=== PATIENT | female | born 1975 | race American Indian/Alaskan Native ===

== ENCOUNTER 2017-03-05 15:34 | Observation (INO) | payer SELFPAY ==
--- NOTE | 2017-03-05 14:21 | History and Physical Report ---
History of Present Illness Date of examination: 03/05/17 Chief complaint: Elevated BP and proteinuria History of present illness: 41-year-old at 25+ weeks presents with above issues and complaints, she is a [facility] patient. Essential history this patient with history of hypertensive disorder of being followed by a [facility]. She was seen in clinic today with blood pressure in the 140 over 90s with 4+ protein on a urinalysis. She is sent over for further care. There is an oral history of 24-hour urine protein collection, no results yet. A history of negative HELLP labs. Last scan from [facility] was on 01/29/2017 and was unremarkable Currently denies headache, scotomata or epigastric pain. No contractions, loss of fluid or vaginal bleeding plus movement Past History Past Medical History: no pertinent history Past Surgical History: section (# 2, last in 02/2015), other (inguinal hernia repair) PERSONNEL TRAINING OFFICER History: denies: chlamydia, fibroids, gonorrhea, hepatitis B, hepatitis C, herpes, HIV, syphilis, trichomonas Social history: , full code. denies: smoking, alcohol abuse, prescription drug abuse, IV drug use - Obstetrical History Expected Date of Delivery: 06/14/17 Actual Gestation: 25 Week(s) 4 Day(s) : 4 Para: 3 Hx # Term Pregnancies: 3 Number of Pregnancies: 0 Review of Systems Constitutional: no fever, no chills, no sweats, no weakness Cardiovascular: no chest pain, no orthopnea, no palpitations, no syncope, no lightheadedness, no shortness of breath, no dyspnea on exertion, no paroxysmal nocturnal dyspnea, no high blood pressure Respiratory: no cough with sputum, no hemoptysis, no shortness of breath, no dyspnea on exertion Gastrointestinal: no abdominal pain, no nausea, no vomiting, no coffee ground emesis, no heartburn Genitourinary: no vaginal bleeding, no vaginal discharge, no leakage of fluid, no genital sores, no contractions - Physical Exam Cardiovascular: Regular rate, Normal S1, Normal S2 Lungs: Positive: Clear to auscultation, Normal air movement Abdomen: Positive: normal appearance, soft. Negative: distention, tenderness, guarding, rigidity Uterus: Positive: enlarged. Negative: tender Extremities: Positive: normal Results All other labs normal. Assessment and Plan A: 41 y/o at 25+4 weeks presents for observation Issues -Elevated BP w/ range ~ 140/90's -AMA -Hx of Pre-Eclampsia with prior pregnancies -Prior C/S # 2 -Desires permanent sterilization P: -Admit -Obtain 24-hour urine protein collection and HELLP labs -BPP and Growth scan -Start celestone course, antihypertensives and Magnesium for severe range blood pressures -consented for tubal ligation -Final disposition after results available - Patient Problems (1) 25 to 26 weeks gestation of Current Visit: Yes Status: Acute (2) Hypertension affecting in third trimester Current Visit: Yes Status: Acute (3) AMA (advanced maternal age) multigravida 35+ Current Visit: Yes Status: Acute Qualifiers: Trimester: T (4) Request for sterilization Current Visit: Yes Status: Acute
[~2017-03-05 15:34] MED LIST: APRESOLINE IV PRN; COLACE PO PRN; ZOFRAN IV PRN
[2017-03-05 18:39] LABS: Hematocrit 37.7 % (30.3-42.9); Hemoglobin 11.9 gm/dl (10.1-14.3); Mean Corpuscular HGB Conc 32 % (30-34); Mean Corpuscular Volume 80 fl (79-97); Platelet Count 223 K/mm3 (140-440); Red Blood Count 4.71 M/mm3 (3.65-5.03); White Blood Count 7.9 K/mm3 (4.5-11.0)
[2017-03-05 18:48] LABS: Alanine Aminotransferase 19 units/L (7-56); Albumin 3.3 g/dL (3.9-5); Albumin/Globulin Ratio 1.1 %; Alkaline Phosphatase 139 units/L (35-129); Anion Gap 17 mmol/L; Bilirubin,Total < 0.20 mg/dL (0.1-1.2); Blood Urea Nitrogen 8 mg/dL (7-17); Calcium 8.9 mg/dL (8.4-10.2); Carbon Dioxide 20 mmol/L (22-30); Chloride 101.6 mmol/L (98-107); Glucose 77 mg/dL (65-100); Potassium 3.9 mmol/L (3.6-5.0); Sodium 135 mmol/L (137-145); Total Protein 6.3 g/dL (6.3-8.2)
[2017-03-05 18:50] LABS: Bilirubin,Direct < 0.2 mg/dL (0-0.2)
[2017-03-05 19:01] LABS: Mean Corpuscular Hemoglobin 25 pg (28-32)
[2017-03-05] MEDS: TYLENOL PO PRN (19:45)
[2017-03-06] MEDS: LACTATED RINGERS 1,000 ML IV SCH ×3 (01:10→16:35)
--- NOTE | 2017-03-06 07:27 | Ultrasound Report ---
ULTRASOUND BIOPHYSICAL PROFILE: History: Hypertension during Technique: Transabdominal ultrasound with Doppler interrogation. 2 - breathing movements 2 - movements 2 - posture and tone 2 - Qualitative amniotic fluid volume 8 - TOTAL SCORE OF POSSIBLE 8 Heart Rate (bpm) 150
--- NOTE | 2017-03-06 07:33 | Ultrasound Report ---
OB ULTRASOUND HISTORY: Hypertension during , well being TECHNIQUE: Transabdominal ultrasound with Doppler interrogation. FINDINGS: Gestation: Single Position: Breech Amniotic Fluid: Normal KITA = 19.9 cm Placenta: Fundal Placental Grade: 1 Heart Rate: 150 BPM Cervical length: Not seen cm (Normal > 3 cm) BPD: 6.2 cm = 25 w 1 d HC: 23.9 cm = 26 w 0 d AC: 19.9 cm = 24 w 4 d FL: 4.7 cm = 25 w 4 d HC/AC Ratio: 1.2 Cephalic Index: 74.3 Estimated Weight: 770 grams Clinical age = 25 w 4 d EDC: 06/14/17 US Gest. Age = 25 w 2 d EDC: 06/16/17
--- NOTE | 2017-03-06 08:00 | Progress Note ---
Assessment and Plan A: 41 y/o at 25+5 weeks presents for observation -Blood pressure and HELLP labs within normal Issues -Hx of Elevated BP w/ range ~ 140/90's on admission -AMA -Hx of Pre-Eclampsia with prior pregnancies -Prior C/S # 2 -Desires permanent sterilization P: -Complete 24 hour urine protein -Discharged home after completion of above -Follow-up with clinic and [facility] as recommended - Patient Problems (1) 25 to 26 weeks gestation of Current Visit: Yes Status: Acute (2) Hypertension affecting in third trimester Current Visit: Yes Status: Acute (3) AMA (advanced maternal age) multigravida 35+ Current Visit: Yes Status: Acute Qualifiers: Trimester: T (4) Request for sterilization Current Visit: Yes Status: Acute Subjective - Subjective Date of service: 03/06/17 Principal diagnosis: IUP @ 25+5 wks, HTN d/o Preg r/o Pre-E Interval history: Patient seen and examined, and well no issues. He has no symptoms of preeclampsia. HELLP labs obtained yesterday within normal Blood pressure reviewed. She was admitted at about ~ 16:20 yesterday afternoon. Blood pressure readings from admission shows 3 recordings with elevated BP's. One reading was 169/74 then two other readings in the 140/90's. All other readings since then have been in the range between 100-130/50-70. Scan 03/05/2017 shows EFW 770 g. Cervical length is 3 cm, placenta is fundal, KITA is ~ 20; fetus in breech. Ultrasound Age is 25+2 weeks with EDC 06/16/2017 this is consistent with clinical age of 25+4 days with EDC 06/14/2017. BPP is 8 out of 8 Patient reports: new complaints, movement normal, no loss of fluid, no vaginal bleeding, no contractions Objective - Vital Signs Vital Signs: Vital Signs - 12hr 03/05/17 03/05/17 03/05/17 20:29 20:43 20:59 Temperature Pulse Rate 110 H 97 H 105 H Respiratory Rate Blood Pressure 113/55 106/51 123/68 03/05/17 03/05/17 03/05/17 21:13 21:29 21:44 Temperature Pulse Rate 85 86 86 Respiratory Rate Blood Pressure 104/58 108/57 117/59 03/05/17 03/05/17 03/05/17 22:02 22:13 22:28 Temperature Pulse Rate 87 85 81 Respiratory Rate Blood Pressure 131/68 128/72 125/68 03/05/17 03/05/17 03/05/17 22:44 22:58 23:13 Temperature Pulse Rate 90 93 H 83 Respiratory Rate Blood Pressure 126/70 119/66 124/70 03/05/17 03/05/17 03/06/17 23:29 23:43 00:15 Temperature 98.3 F Pulse Rate 76 78 Respiratory 18 Rate Blood Pressure 111/59 113/57 03/06/17 03/06/17 03/06/17 00:44 00:58 01:13 Temperature Pulse Rate 84 90 78 Respiratory Rate Blood Pressure 106/55 113/58 126/62 03/06/17 03/06/17 03/06/17 01:28 01:43 01:58 Temperature Pulse Rate 87 88 86 Respiratory Rate Blood Pressure 124/68 123/68 124/67 03/06/17 03/06/17 03/06/17 02:37 02:43 02:59 Temperature Pulse Rate 83 83 83 Respiratory Rate Blood Pressure 128/78 126/78 104/56 03/06/17 03/06/17 03/06/17 03:14 03:44 03:45 Temperature 98.5 F Pulse Rate 81 76 Respiratory 18 Rate Blood Pressure 123/70 100/59 03/06/17 03/06/17 03/06/17 03:59 04:44 04:58 Temperature Pulse Rate 80 102 H 93 H Respiratory Rate Blood Pressure 123/68 111/61 113/59 03/06/17 03/06/17 03/06/17 05:14 05:29 05:43 Temperature Pulse Rate 102 H 96 H 93 H Respiratory Rate Blood Pressure 114/74 106/62 105/57 03/06/17 03/06/17 03/06/17 05:58 06:14 06:28 Temperature Pulse Rate 93 H 121 H 100 H Respiratory Rate Blood Pressure 112/58 109/60 115/62 - Labs Labs: Abnormal Labs 03/05/17 03/05/17 17:57 17:57 MCH 25 L RDW 21.0 H Sodium 135 L Carbon Dioxide 20 L Creatinine 0.4 L Alkaline Phosphatase 139 H Albumin 3.3 L Laboratory Results - last 24 hr 03/05/17 03/05/17 03/05/17 17:57 17:57 17:57 WBC 7.9 RBC 4.71 Hgb 11.9 Hct 37.7 MCV 80 MCH 25 L MCHC 32 RDW 21.0 H Plt Count 223 Sodium 135 L Potassium 3.9 Chloride 101.6 Carbon Dioxide 20 L Anion Gap 17 BUN 8 Creatinine 0.4 L Estimated GFR > 60 BUN/Creatinine Ratio 20.00 Glucose 77 Calcium 8.9 Total Bilirubin < 0.20 Direct Bilirubin < 0.2 Indirect Bilirubin 0.0 AST 29 ALT 19 Alkaline Phosphatase 139 H Total Protein 6.3 Albumin 3.3 L Albumin/Globulin Ratio 1.1 Blood Type AB POSITIVE Antibody Screen TNR ASHLEE Antibody Screen Negative
--- NOTE | 2017-03-06 08:05 | Discharge Summary ---
Providers - Providers Date of Admission: 03/05/17 15:35 Date of discharge: 03/06/17 Attending physician: AGUSTINA VACA Primary care physician: AGUSTINA VACA Hospitalization Reason for admission: observation (IUP at 25+4 weeks to rule out preeclampsia) Discharge diagnosis: other (IUP at 25+5 weeks with hypertensive disorder of ) Pertinent studies: -Growth Scan 03/05/2017 shows EFW 770 g. Cervical length is 3 cm, placenta is fundal, KITA is ~ 20; fetus in breech. Ultrasound Age is 25+2 weeks with EDC this is consistent with clinical age of 25+4 days with EDC 06/14/2017. -BPP is 8 out of 8 Hospital course: 41-year-old at 25+4 weeks presents for observation, she is a [facility] patient. Essential history this patient with history of hypertensive disorder of being followed by a [facility]. She was seen in clinic today with blood pressure in the 140 over 90s with 4+ protein on a urinalysis. She is sent over for further care. There is an oral history of 24- hour urine protein collection, no results yet. A history of negative HELLP labs. Last scan from [facility] was on 01/29/2017 and was unremarkable Currently denies headache, scotomata or epigastric pain. No contractions, loss of fluid or vaginal bleeding plus movement Patient seen and examined, and well no issues on HD# 2. She still has no symptoms of preeclampsia. HELLP labs obtained yesterday (03/05/17) within normal Blood pressure reviewed. She was admitted at about ~ 16:20 yesterday afternoon (03/05/17). Blood pressure readings from admission shows 3 recordings with elevated BP's. One reading was 169/74 then two other readings in the 140/90's. All other readings since then have been in the range between 100-130/50-70. Note that she's currently on no antihypertensive medication. Scan 03/05/2017 shows EFW 770 g. Cervical length is 3 cm, placenta is fundal, KITA is ~ 20; fetus in breech. Ultrasound Age is 25+2 weeks with EDC 06/16/2017 this is consistent with clinical age of 25+4 days with EDC 06/14/2017. BPP is 8 out of 8 She will complete her 24-hour urine protein at ~ 18:00. She will be discharged home to follow up with maternal- medicine and clinic on outpatient basis. Please note patient is status post 2 prior C-sections. She desires to have tubal ligation during her repeat and has signed consent. Condition at discharge: Good Disposition: DC-01 TO HOME OR SELFCARE - Discharge Diagnoses (1) 25 to 26 weeks gestation of Status: Acute (2) Hypertension affecting in third trimester Status: Acute (3) AMA (advanced maternal age) multigravida 35+ Status: Acute Qualifiers: Trimester: T (4) Request for sterilization Status: Acute Plan - Provider Discharge Summary Activity: routine, no heavy lifting 4 weeks, no strenuous exercise Diet: routine Additional instructions: [] Smoking cessation referral if applicable(refer to patient education folder for contact #) [] Refer to [facility] Booklet Call your doctor immediately for: * Fever > 100.5 * Heavy vaginal bleeding ( >1 pad per hour) * Severe persistent headache * Shortness of breath * Reddened, hot, painful area to leg or breast * Drainage or odor from incision. * Keep incision clean and dry at all times and follow doctor's instructions regarding bathing/showering - Follow up plan Follow up: AGUSTINA VACA MD [Primary Care Provider] - 3 Days (In clinic for BP check) ENA THORNTON MD [Staff Physician] - 3 Days
--- NOTE | 2017-03-06 08:14 | Admit Criteria Form ---
Admission Criteria Documentation: OBSTETRIC AND GYNECOLOGIC DISEASE GRG Clinical Indications for Admission to Inpatient Care (Place 'X' for any and all applicable criteria): Hospital admission is needed for appropriate care of the patient because of 1 or more of the following (1)(2)(3): [ ]I. Hemodynamic instability, as indicated by 1 or more of the following (1)( 2)(3)(4)(5): [ ]a) Vital signs or other findings not as expected for chronic patient condition or baseline [ ]b) Instability indicated by 1 or more of the following: [ ]i) Hypotension [ ]ii) Symptomatic tachycardia unresponsive to treatment (eg, analgesia, fluids, sedation as indicated) [ ]iii) Inadequate perfusion indicated by 1 or more of the following: [ ]A. Lactic acidosis (greater than 2 mmol/ L) [ ]B. New abnormal capillary refill ( greater than 3 seconds) [ ]C. Reduced urine output [ ]D. New altered mental status [ ]iv) Orthostatic vital sign changes unresponsive to treatment (eg, fluids) [ ]v) Multiple IV fluid boluses required to maintain adequate blood pressure or perfusion [ ]vi) IV inotropic or vasopressor medication required to maintain adequate blood pressure or perfusion [ ]II. Obstetric infection requiring hospitalization indicated by 1 or more of the following(13)(14): [ ]a) Chorioamnionitis [ ]b) Endometritis (except mild endometritis) [ ]c) Pelvic abscess [ ]d) Peritonitis [ ]e) Septic pelvic thrombophlebitis [ ]III. Amniotic fluid or pulmonary embolism(4)(5)(6) [ ]IV. Suspected peritonitis or ectopic requiring monitoring beyond scope of 24 hours or observation care(7)(8) [ ]V. compromise requiring hospitalization indicated by ALL of the following(9)(10): [ ]a) compromise indicated by 1 or more of the following(11): [ ]i) Abnormal heart rate monitoring [ ]ii) Abnormal contraction stress test [ ]iii) Abnormal biophysical profile [ ]iv) Abnormal Doppler flow in vessels (ie, Doppler velocimetry) (12) [ ]b) Persistence of compromise indicators during evaluation and observation monitoring [ ]. Ovarian hyperstimulation syndrome requiring hospitalization[A] indicated by ALL of the following(15): [ ]a) Recent ovarian stimulation with gonadotropins, or evidence on ultrasound of spontaneous emergence of large number of ovarian follicles [ ]b) Evidence of severe ovarian hyperstimulation syndrome indicated by 1 or more of the following: [ ]i) Abdominal pain unresponsive to oral therapy [ ]ii) Acute respiratory distress syndrome [ ]iii) Electrolyte imbalance ( eg, hyponatremia, hyperkalemia) [ ]iv) Elevated liver enzymes [ ]v) Evidence of thromboembolism [ ]vi) Hemoconcentration (hematocrit greater than 45 % (0.45)) [ ]vii) Inability to maintain oral intake adequate to prevent hemoconcentration [ ]viii) Marked hypotension from baseline (eg, SBP 20 mmHg below patients usual pressure) [ ]ix) Oliguria or anuria [ ]x) Ovarian torsion [ ]xi) Pleural or pericardial effusion on x-ray or echocardiogram [ ]xii) Rapid increase in serum creatinine to greater than 1.2 mg/dL (106 micromoles/L) or creatinine clearance less than 50 mL/min/1.73m2 (0.84 mL/ sec/1.73m2) [ ]xiii) Ruptured ovarian cyst with hemorrhage [ ]xiv) Severe abdominal pain or peritoneal signs [ ]xv) Tense ascites that cannot be managed with paracentesis in outpatient setting [ ]VII.Pelvic infection requiring hospitalization indicated by 1 or more of the following (16): [ ]a) Outpatient treatment has failed or is not appropriate (eg, inpatient monitoring required) [ ]b) Pelvic abscess [ ]c) Surgical emergency cannot be excluded (eg, rigid abdomen) [ ]d) Vomiting precluding outpatient and observation care management VIII. loss complications requiring inpatient medical treatment indicated by 1 or more of the following (4)(7)(9): [ ]a) Fever [ ]b) Peritonitis [ ]c) Sepsis [ ]d) Severe abdominal pain [ ]IX. or patient requiring monitoring for severe heart failure, pulmonary disease, or other comorbid condition (eg, peripartum cardiomyopathy) (4)(17) [ ]X. patient with rupture of membranes requiring hospitalization indicated by ANY ONE of the following: [ ]a) Chorioamnionitis, cloudy amniotic fluid, or other evidence of infection [ ]b) compromise or other need for monitoring (11) [ ]c) Gestation longer than 23 weeks and ANY ONE of the following: [ ]i) Abnormal (noncephalic) presentation [ ]ii) Inadequate home environment (eg, home too far from hospital, unable to rapidly return to hospital) [ ]d) Temperature greater than 100.4 degrees F (38 degrees C)( oral) [ ]e) Threatened labor requiring monitoring beyond scope (eg, over 24 hours) of observation Care [ ] XI. complications, including severe lacerations, infections, or retained placenta (19) [ ] XII.Uterine bleeding with high-risk features indicated by ANY ONE of the following (4): [ ]a) Active major hemorrhage (eg, hemorrhage) [ ]b) Coagulopathy with active bleeding [ ]c) Gestational trophoblastic disease (eg, molar ) (20 ) [ ]d) (longer than 23 weeks) and ANY ONE of the following: [ ]i) Pain [ ]ii) Placental abruption, known or suspected [ ]iii) Placenta accrete, known or suspected(21) [ ]iv) Placenta previa, known or suspected [ ]v) Vasa previa [ ]e) Severe anemia [X ]XIII. Obstetric or Gynecologic Disease, condition or symptom for which ANY ONE of the following: [ X]a) Emergency and observation care have failed or are not considered appropriate ( Also use General Criteria: Observation Care Criteria as appropriate) [ ]b) Presence of a General Admission Criteria or Pediatric General Admission Criteria The original [facility] content created by [facility] has been revised. The portions of the content which have been revised are identified through the use of italic text or in bold, and [facility] has neither reviewed nor approved the modified material.All other unmodified content is copyright [facility]. Please see references footnoted in the original [facility] edition 2016 Admission Criteria Met: Yes
[2017-03-06] MEDS: TYLENOL PO PRN (09:55)
[2017-03-06] MEDS ORDERED: PRENATAL VITAMIN PO SCH (10:00)
[2017-03-06 17:03] VITALS: BP 128/60
[2017-03-06 19:26] LABS: Total Protein 24 Hour,Urine 305.5 (2-200)
== END 2017-03-06 17:30 | disposition home or self-care (01) ==
LOC: TRG 15:34 → LD 15:35
PROVIDERS: ADMIT Obstetrics & Gynecology Gynecology; ATTEND Obstetrics & Gynecology Gynecology
DX: O10.913 Unspecified pre-existing hypertension complicating pregnancy, third trimester (principal); O09.523 Supervision of elderly multigravida, third trimester; Z30.2 Encounter for sterilization; Z3A.25 25 weeks gestation of pregnancy
CPT/HCPCS: 36415; 76816; 76819; 80048; 80074; 84156; 85027; 86850; 86900; 86901; 96360; 96361; G0378; J7120